=== PATIENT | female | born 1985 | race Hispanic/Latino ===

== ENCOUNTER 2017-10-16 11:18 | Day surgery (SDC) | payer BC ==
[2017-10-16] MEDS ORDERED: Lactated Ringer's 1,000 ML IV SCH (12:00)
[2017-10-16 12:14] VITALS: BMI 24.6
[2017-10-16] MEDS ORDERED: Indomethacin 25 mg Capsule PO SCH (12:30)
--- NOTE | 2017-10-16 13:10 | SS ---
DATE OF ADMISSION: 10/16/2017 CHIEF COMPLAINT: Shortened cervix on a routine anatomy ultrasound. HISTORY OF PRESENT ILLNESS: This is a 31-year-old G1, P0 at 20 weeks by LMP, presented to my office without complaint for routine anatomy ultrasound. She was found to have no measurable cervix with me mbranes to the external cervical os. On exam, the patient was found to be dilated 2-3 cm with a bulging bag slightly past the external cer vical os. The patient denied any pain, vaginal bleeding. After questioning, she had slight increase in discharge as of Thursday that was white, non-odorous, no itching, no lower abdominal pain, cramp ing, pressure contractions, nausea, vomiting or fever. PAST MEDICAL HISTORY: Denies. PAST SURGICAL HISTORY: Appendectomy. SOCIAL HISTORY: Negative x3. Currently . FAMILY HISTORY: Hypertension and diabetes. MEDICATIONS: vitamins. ALLERGIES: No known drug allergies. CURRENT REVIEW OF SYSTEMS: Negative except as noted in HPI. PHYSICAL EXAMINATION: VITAL SIGNS: Blood pressure 120/73, pulse is 90, temperature 99.4, respirations 18. GENERAL: No acute distress. CARDIAC: Regular rhythm. LUNGS: Clear to auscultation bilaterally. ABDOMEN: Soft, nontender, gravid at level of the umbilicus. FHTs are 150. EXTREMITIES: No edema, cyanosis or clubbing. PELVIC: As above. ASSESSMENT AND PLAN: A 31-year-old G1, P0 at 20 weeks by LMP with advanced cervical dilation likely an incompetent cervix. I have spoken with Maternal Medicine at [facility] and I have counseled the patient on transfer for evaluation for rescue cerclage. The patient wishes to pro ceed with transfer. No evidence of chorioamnionitis or labor at this time, the patient is cu rrently in slight reverse Trendelenburg with IV fluids going n.p.o. status for possible surgery and I ndocin 50 mg was given prior to discharge.
== END 2017-10-16 12:40 | disposition other institution, planned readmission (95) ==
LOC: ERS 11:18 → L&D/OP 11:18 → EDSTATUS 11:27 → L&D/OP 12:40
PROVIDERS: ATTEND Student in an Organized Health Care Education/Training Program
DX: O26.872 Cervical shortening, second trimester (principal); Z3A.20 20 weeks gestation of pregnancy; Z79.899 Other long term (current) drug therapy

== ENCOUNTER 2017-10-25 08:04 | Day surgery (SDC) | payer BC, OTHER ==
[2017-10-25 08:40] VITALS: BMI 23.8
[2017-10-25 09:29] LABS: Amnisure Test No Membranes Rupture (No Rupture)
[2017-10-25 09:30] LABS: Amnisure Internal Control QC ACCEPTABLE (ACCEPTABLE)
--- NOTE | 2017-10-25 13:23 | SS ---
DATE OF EVALUATION: 10/25/2017 REGULAR PHYSICIAN: Nancy Sanders M.D. EVALUATING PHYSICIAN: Stan Saeed M.D. CHIEF COMPLAINT: "I think I might be leaking fluid." HISTORY OF PRESENT ILLNESS: Ms. Hernandez is a 31-year-old G1, P0, estimated date of confinement of 03/05/2018, currently at 21 weeks, who presents complaining of vaginal discharge with suspected ruptured membranes early this morning. Of note, is the fact that she was seen with incompetent cervix last week and transferred to maternal medicine specialists at [facility] in [place]. A rescue cerclage was placed at that time. She states that her symptomatology primarily consists of discharge and denies any rapid gush of fluid. PAST MEDICAL HISTORY: Unremarkable. CURRENT MEDICATIONS: vitamins. PAST SURGICAL HISTORY: Appendectomy. ALLERGIES: None. SOCIAL HISTORY: Denies tobacco, alcohol, or drug use. FAMILY HISTORY: Unremarkable for other problem pregnancies. REVIEW OF SYSTEMS: Positive for vaginal discharge. Negative for nausea, vomiting, fever, chills, or heavy vaginal bleeding. PHYSICAL EXAMINATION: VITAL SIGNS: Stable. She is afebrile. ABDOMEN: Soft, nontender, and gravid. heart tones are present. No uterine activity is seen on the [place] monitor. A sterile speculum exam shows the cerclage in place and there appears to be no bulging membranes. There is some darker vaginal discharge in the vagina, but there is no pooling seen. AmniSure is obtained and returns negative. ASSESSMENT: 1. A 21-week intrauterine complicated by cervical incompetence with placement of emergent cerclage 1 week ago. 2. No evidence of rupture of membranes at this time. PLAN: At this time, the patient will be discharged to home to continue her bed rest regimen there. She is given complete precautions regarding rupture of membranes and labor. She states that she is set to begin oral progesterone this week. She also reports that she has follow up with maternal nurse, who will be here locally from [facility] next week. I have discussed this case with Dr. Piedra. FLORY
== END 2017-10-25 10:01 | disposition home or self-care (01) ==
LOC: L&D/OP 08:04
PROVIDERS: ATTEND Student in an Organized Health Care Education/Training Program
DX: O99.89 Other specified diseases and conditions complicating pregnancy, childbirth and the puerperium (principal); N89.8 Other specified noninflammatory disorders of vagina; O34.32 Maternal care for cervical incompetence, second trimester; Z79.899 Other long term (current) drug therapy; Z3A.21 21 weeks gestation of pregnancy
CPT/HCPCS: 84112

== ENCOUNTER 2018-03-05 05:30 | Inpatient (IN) | payer BC ==
[2018-03-05] MEDS ORDERED: Ondansetron HCl/PF 4 MG/2 ML Vial IVP PRN ×3 (05:59→21:26)
[2018-03-05] MEDS ORDERED: Ibuprofen 800 MG TAB PO PRN (05:59)
[2018-03-05] MEDS ORDERED: HYDROcodone/Acetaminophen 5/325 mg Tablet PO PRN ×3 (05:59→21:26)
[2018-03-05] MEDS ORDERED: Butorphanol Tartrate 1 MG/ML VIAL SLOW IVP PRN (05:59)
[2018-03-05] MEDS ORDERED: Lidocaine 1% (PF) 30 ML VIAL SC PRN (05:59)
[2018-03-05] MEDS ORDERED: Diphenoxylate HCl/Atropine Tablet PO PRN (05:59)
[2018-03-05] MEDS ORDERED: Carboprost 250 MCG/ML AMP IM PRN (05:59)
[2018-03-05] MEDS ORDERED: Methylergonovine 0.2 MG/ML VIAL IM PRN (05:59)
[2018-03-05] MEDS ORDERED: Misoprostol 200 MCG TAB PR PRN (05:59)
[2018-03-05] MEDS ORDERED: Promethazine HCl 25 MG/ML VIAL IM PRN ×2 (05:59→10:40)
[2018-03-05] MEDS ORDERED: Acetaminophen 500 MG TAB PO PRN (05:59)
[2018-03-05] MEDS ORDERED: NS w/ Oxytocin 10 units 500 ML IV SCH (05:59)
[2018-03-05] MEDS ORDERED: NS / Oxytocin 40 units/1000ml 1,000 ML IV PRN (05:59)
[2018-03-05 06:19] VITALS: BMI 28.9
[2018-03-05] MEDS: Lactated Ringer's 1,000 ML IV SCH ×3 (06:35→12:07)
[2018-03-05 06:48] LABS: Hemoglobin 10.8 g/dL (12.0-16.0); Mean Corpuscular HGB CONC 32.4 g/dL (32.0-36.0); Mean Corpuscular Hemoglobin 27.8 pg (27.0-31.0); Mean Corpuscular Volume 85.8 fL (78.0-98.0); Mean Platelet Volume 9.9 fL (7.4-10.4); Platelet Count 183 thou/uL (130-400); RBC Distribution Width 13.8 % (11.5-14.5); White Blood Cell (WBC) Count 7.9 thou/uL (4.8-10.8)
[2018-03-05 07:26] LABS: HBSAg Index 0.18 S/CO (0-0.99); Hep B Surf Ag Non-Reactive S/CO (NonReactive); Syphilis Antibody Nonreactive (Nonreactive); Syphilis Antibody Index 0.03 S/CO (<1.00 Non-Reactive)
--- NOTE | 2018-03-05 07:52 | PDOC.LDHP ---
Labor and Delivery H&P Chief complaint: scheduled induction HPI: 32yo at 40w 0d by LMP for IOL due to GDM. No complaints. Current gestational age (weeks): 40 Due date: 03/05/18 Dating criteria: last menstrual period Grav: 1 Para: 0 Current complications: gestational diabetes (diet controlled), other ( advanced dilation at 20w, s/p exam indicated rescue cerclage at 20w and removal at 36w) Abnormal US findings: No Current medications: pre-shelby vitamins Previous surgical history: other (cerclage) Allergies/Adverse Reactions: Allergies Allergy/AdvReac Type Severity Reaction Status Date / Time No Known Allergies Allergy Verified 03/05/18 06:07 Social history: none - Physical Exam Vital signs reviewed and normal: yes General: NAD Heart: RRR Lungs: CTAB Abdomen: gravid Extremeties: no edema FHT: category 1 [place] contractions every: 3min - Vaginal Exam cm dilated: 3 Effacement: 90% Station: -2 (arom clear) - OB Labs RH: positive Antibody Screen: negative HIV: negative RPR: negative HEPSAg: negative 1 hour GCT: positive 3 hour GTT: positive for GDM Urine drug screen: negative Rubella: immune - Assessment L&D Assessment: medically indicated induction - Plan Plan: admit to L&D, labor augmentation if indicated, informed consent obtained, anesthesia consult for pain management
[2018-03-05] MEDS ORDERED: Bupivacaine 0.5% 20 ML, fentaNYL Citrate/PF 400 MCG in Sodium Chloride 0.9% 72 ML EPIDURAL SCH (09:45)
[2018-03-05] MEDS ORDERED: DISCONTINUE ALL PREVIOUS NARCOTICS FS SCH (09:45)
[2018-03-05] MEDS ORDERED: Lactated Ringer's 500 ML IV PRN (10:40)
[2018-03-05] MEDS ORDERED: ePHEDrine/0.9% NaCl/PF SYRINGE 50 mg/10 ml SLOW IVP PRN (10:40)
[2018-03-05] MEDS ORDERED: diphenhydrAMINE 50 MG/ML VIAL IVP PRN (10:40)
[2018-03-05] MEDS ORDERED: Naloxone HCl 0.4 mg/ml Vial IVP PRN ×2 (10:40)
[2018-03-05] MEDS ORDERED: Acetaminophen 325 MG TAB PO PRN (10:40)
[2018-03-05] MEDS ORDERED: Eucerin (Mineral Oil/Petrolatum,White) 30 gm Jar TOP PRN (10:40)
[2018-03-05] MEDS ORDERED: Communication Order-Pharmacy FS SCH (10:45)
[2018-03-05] MEDS ORDERED: fentaNYL Citrate/PF 400 MCG, Bupivacaine 0.5% 20 ML in Sodium Chloride 0.9% 72 ML EPIDURAL SCH (10:45)
[2018-03-05] MEDS ORDERED: NS / Oxytocin 40 units/1000ml 1,000 ML ONE (13:35)
[2018-03-05] MEDS ORDERED: Lidocaine 1% (PF) 30 ML VIAL ONE (13:35)
[2018-03-05] MEDS ORDERED: Misoprostol 200 MCG TAB ONE (18:26)
[2018-03-05] MEDS ORDERED: Methylergonovine 0.2 MG/ML VIAL ONE (18:26)
--- NOTE | 2018-03-05 18:40 | PDOC.OPDEL ---
OB Operative/Delivery Note Delivery Dr/Surgeon: Tommy Assist: n/a Pre-Delivery Diagnosis: medically indicated induction Procedure/Post Delivery Dx: spontaneous vaginal delivery Weeks gestation: 40 Anesthesia: epidural - Findings A Sex: male - 1 min: 8 - 5 min: 9 - Additional Findings/Plan Placenta delivered: spontaneous Repaired Obstetrical Laceration: 2nd degree (repaired with 2-0 vicryl) findings: other Estimated blood loss: 331 qbl Compilations/Other Findings: NC x 1 delivered through Post delivery plan: routine recovery
[2018-03-05] MEDS ORDERED: Benzocaine/Menthol 20-0.5% 60 ML CAN TOP PRN (21:26)
[2018-03-05] MEDS ORDERED: NS / Oxytocin 40 units/1000ml 1,000 ML IV SCH (21:26)
[2018-03-05] MEDS ORDERED: Preparation H Ointment 28 GM TUBE PR PRN (21:26)
[2018-03-05] MEDS ORDERED: Milk Of Magnesia 30 ML UDCUP PO PRN (21:26)
[2018-03-05] MEDS ORDERED: diphenhydrAMINE 25 MG CAP PO PRN (21:26)
[2018-03-05] MEDS ORDERED: Bisacodyl 10 MG SUPP PR PRN (21:26)
[2018-03-05] MEDS ORDERED: Lanolin Ointment 7 GM TUBE TOP PRN (21:26)
[2018-03-05] MEDS ORDERED: Docusate Calcium (SURFAK) 240 MG CAP PO SCH (21:45)
[2018-03-05] MEDS: Ibuprofen 800 MG TAB PO SCH (22:46)
[2018-03-06 05:52] LABS: Hemoglobin 11.1 g/dL (12.0-16.0); Mean Corpuscular HGB CONC 32.2 g/dL (32.0-36.0); Mean Corpuscular Hemoglobin 27.8 pg (27.0-31.0); Mean Corpuscular Volume 86.6 fL (78.0-98.0); Mean Platelet Volume 9.5 fL (7.4-10.4); Platelet Count 167 thou/uL (130-400); RBC Distribution Width 14.2 % (11.5-14.5); Red Blood Cell (RBC) Count 3.99 mill/uL (4.20-5.40); White Blood Cell (WBC) Count 17.1 thou/uL (4.8-10.8)
[2018-03-06] MEDS: Ibuprofen 800 MG TAB PO SCH ×3 (06:55→21:45)
--- NOTE | 2018-03-06 08:03 | PDOC.PP ---
Post Progress Note Post Day #: 1 Subjective: Doing well, no complaints. PO intake tolerated: yes Ambulation: yes Vital Signs (12 hours) Temp Pulse Resp BP 03/06/18 04:00 98.6 F 72 18 130/60 03/05/18 21:26 98.5 F 73 18 139/63 Weight Weight 148 lb - Physical Examination General: NAD Respiratory: non-labored breathing Abdominal: lochia (normal), no distention, appropriately TTP Fundus firm & at: U-3 Extremities: negative homans (B) Skin: no rash Neurological: no gross focal deficits Psychiatric: A&Ox3, normal affect Result Diagrams: 03/06/18 05:43 Additional Labs: Post Labs Blood Type A POSITIVE 03/05/18 06:39 Hep Bs Antigen Non-Reactive S/CO (NonReactive) 03/05/18 06:39 (1) (spontaneous vaginal delivery) Code(s): O80 - ENCOUNTER FOR FULL-TERM UNCOMPLICATED DELIVERY Status: Acute (2) Second degree laceration of perineum, delivered, current hospitalization Code(s): O70.1 - SECOND DEGREE PERINEAL LACERATION DURING DELIVERY Status: Acute - Assessment/Plan Doing well PPD1. Continue to monitor today. Will plan d/c tomorrow.
[2018-03-06] MEDS ORDERED: Adacel (T-DAP) 0.5 ML VIAL IM ONE (09:00)
[2018-03-06] MEDS: Ferrous Sulfate 325 MG TAB PO SCH ×2 (09:32→18:23)
[2018-03-06] MEDS: Prenatal Vitamin 1 TAB PO SCH (09:38)
[2018-03-06] MEDS: Docusate Calcium (SURFAK) 240 MG CAP PO SCH ×2 (09:39→21:45)
[2018-03-06] MEDS ORDERED: Lidocaine 2% MPF 10 ML AMP (For Epidural Use) ONE (11:11)
[2018-03-07] MEDS: Ibuprofen 800 MG TAB PO SCH (05:47)
[2018-03-07] MEDS: Ferrous Sulfate 325 MG TAB PO SCH (07:32)
[2018-03-07 08:27] VITALS: BP 132/77; TEMP 98.5
[2018-03-07] MEDS: Prenatal Vitamin 1 TAB PO SCH (09:19)
[2018-03-07] MEDS: Docusate Calcium (SURFAK) 240 MG CAP PO SCH (09:20)
== END 2018-03-07 13:40 | disposition home or self-care (01) | DRG 775 ==
LOC: L&D 05:46 → 3SW 21:03
PROVIDERS: ADMIT Student in an Organized Health Care Education/Training Program; ATTEND Student in an Organized Health Care Education/Training Program
PROC: 10907ZC Drainage of Amniotic Fluid, Therapeutic from Products of Conception, Via Natural or Artificial Opening (ICD-10-PCS; principal; 2018-03-05)
PROC: 10E0XZZ Delivery of Products of Conception, External Approach (ICD-10-PCS; 2018-03-05)
PROC: 0KQM0ZZ Repair Perineum Muscle, Open Approach (ICD-10-PCS; 2018-03-05)
PROC: 3E033VJ Introduction of Other Hormone into Peripheral Vein, Percutaneous Approach (ICD-10-PCS; 2018-03-05)
DX: O99.824 Streptococcus B carrier state complicating childbirth (principal); O24.420 Gestational diabetes mellitus in childbirth, diet controlled; Z3A.40 40 weeks gestation of pregnancy; Z37.0 Single live birth; O70.1 Second degree perineal laceration during delivery; O69.81X0 Labor and delivery complicated by cord around neck, without compression, not applicable or unspecified
CPT/HCPCS: 36415; 36416; 51702; 85027; 86780; 86850; 86900; 86901; 87340; J2001; J2210; J3010; J3490; J7050

== ENCOUNTER 2019-11-17 08:19 | Outpatient (CLI) | payer BC ==
--- NOTE | 2019-11-17 09:11 | MMO ---
Bilateral MAMMO Bilat Diag DDI+TESFAYE. CLINICAL HISTORY: Patient is 33 years old and is seen for diagnostic exam and lump or thickening in the right breast. The patient has no family history of breast cancer. The patient has no personal history of cancer. VIEWS: The views performed were: bilateral craniocaudal with tomosynthesis; bilateral mediolateral oblique with tomosynthesis; bilateral mediolateral with tomosynthesis; and bilateral exaggerated craniocaudal. FILMS COMPARED: The present examination has been compared to a prior imaging study performed at [facility] on 11/17/2019. This study has been interpreted with the assistance of computer-aided detection. MAMMOGRAM FINDINGS: The breasts are heterogeneously dense, which could obscure a lesion on mammography. US OF REGION OF PALPABLE CONCERN IN THE RIGHT UPPER OUTER BREAST IS UNREMARKABLE. There are no suspicious masses, suspicious calcifications, or new areas of architectural distortion. IMPRESSION: THERE IS NO MAMMOGRAPHIC EVIDENCE OF MALIGNANCY. AGE APPROPRIATE SCREENING BASED ON RISK FACTORS IS RECOMMENDED. THE RESULTS OF THIS EXAM WERE SENT TO THE PATIENT. ACR BI-RADS Category 2 - Benign finding MAMMOGRAPHY NOTE: 1. A negative mammogram report should not delay a biopsy if a dominant of clinically suspicious mass is present. 2. Approximately 10% to 15% of breast cancers are not detected by mammography. 3. Adenosis and dense breasts may obscure an underlying neoplasm. Reported by: BAKARI TOLBERT MD Electonically Signed: [id number]
--- NOTE | 2019-11-17 10:59 | ULT ---
RIGHT BREAST ULTRASOUND: Date: 11/17/2019 HISTORY: Palpable abnormality at 10 o'clock position of right breast. FINDINGS: Sonographic evaluation of the region of palpable concern at the 10 o'clock position of the right megan st 2.0 cm from the nipple demonstrates no abnormality. Correlation made with mammogram of same date. IMPRESSION: BI-RADS Category 2 - Benign findings. Return to age-appropriate screening based on risk factors.
== END 2019-11-17 08:20 | disposition home or self-care (01) ==
LOC: BICMAMMO 08:19
PROVIDERS: ATTEND Advanced Practice Midwife
DX: N63.10 Unspecified lump in the right breast, unspecified quadrant (principal)
CPT/HCPCS: 77066; G0279